=== PATIENT | female | born 1965 | race Caucasian/White ===

== ENCOUNTER 2017-08-03 13:32 | Outpatient (CLI) | payer OTHER ==
--- NOTE | 2017-08-03 15:43 | ULT ---
ULTRASOUND WITH DOPPLER DUPLEX VENOUS LOWER EXTREMITY RIGHT CPT: 51078 ICD-10-PCS: B54D HISTORY: Erythema, edema. TECHNIQUE: Color flow Doppler, spectral waveform analysis of pulsed Doppler, and kong-scale imaging with compre ssion and augmentation, were used to evaluate the bilateral common femoral, femoral, popliteal, post erior tibial, and superficial femoral, veins; and the proximal portions of the profunda femoral and greater saphenous, veins. FINDINGS: There is appropriate compressibility and flow within the image deep vein system right lower extremit y. IMPRESSION: 1. No deep vein thrombosis. 2. Soft tissue edema. POS: [facility]
== END 2017-08-03 13:33 | disposition home or self-care (01) ==
LOC: ULT 13:32
PROVIDERS: ATTEND Family Medicine
DX: M79.604 Pain in right leg (principal); R60.0 Localized edema

== ENCOUNTER 2020-09-25 14:24 | Inpatient (IN) | payer SELFPAY ==
[~2020-09-25 14:24] MED LIST: Iopamidol-370 76% 500 ML 1 ML ONE
[2020-09-25 15:12] LABS: Bilirubin Negative (Negative); Blood, Urine 2+ (Negative); Clarity Extra Turbid (Clear); Glucose, Urine (Dipstick) Normal (Negative); Ketone, Urine 10 mg/dL (Negative); Leukocyte 500 Leu/uL (Negative); Nitrite Negative (Negative); Protein, Urine (Dipstick) 100 mg/dL (Neg-Trace); Specific Gravity, Urine 1.029 (1.002-1.036); Urobilinogen 3 mg/dL (Less than 2); WBC/HPF Greater than 50 HPF (0-3); pH, Urine 5.5 (5.0-9.0)
[2020-09-25 15:20] LABS: Hemoglobin 12.8 g/dL (12.0-16.0); Mean Corpuscular HGB CONC 34.6 g/dL (32.0-36.0); Mean Corpuscular Hemoglobin 32.8 pg (27.0-31.0); Mean Corpuscular Volume 94.7 fL (78.0-98.0); Mean Platelet Volume 7.4 fL (7.4-10.4); Platelet Count 298 thou/uL (130-400); RBC Distribution Width 11.5 % (11.5-14.5); Red Blood Cell (RBC) Count 3.91 mill/uL (4.20-5.40); White Blood Cell (WBC) Count 13.2 thou/uL (4.8-10.8)
[2020-09-25 15:25] LABS: Bacteria/HPF 4+ HPF (None Seen)
[2020-09-25 15:40] LABS: ALT (SGPT) 15 U/L (8-55); AST (SGOT) 17 U/L (5-34); Albumin 3.5 g/dL (3.5-5.0); Alkaline Phosphatase 93 U/L (40-110); Anion Gap 15 mmol/L (10-20); BUN (Urea Nitrogen) 6 mg/dL (9.8-20.1); Bilirubin, Total 0.6 mg/dL (0.2-1.2); Calc. Creatinine Clearance 0 mL/min (70-130); Calcium 8.7 mg/dL (7.8-10.44); Carbon Dioxide 31 mmol/L (22-29); Chloride 94 mmol/L (98-107); Estimated GFR-MDRD 79; Glucose 127 mg/dL (70-105); Lipase 7 U/L (8-78); Potassium 3.1 mmol/L (3.5-5.1); Protein, Total 7.5 g/dL (6.0-8.3); Sodium 137 mmol/L (136-145)
[2020-09-25 15:49] LABS: Band 23 % (5-11); Eosinophils 1 % (0-10); Lymphocytes 5 % (21-51); MDiff Complete? YES; Monocytes 8 % (0-10); Neutrophil 58 % (42-75); Platelet Morphology Comment Appears Adequate; Polychromasia SLIGHT = 2-3 cells (100X) (0-2/hpf); Reactive Lymphocytes 5 % (0-10)
[2020-09-25 16:44] LABS: CKMB 0.3 ng/mL (0-6.6)
[2020-09-25] MEDS ORDERED: Piperacillin/Tazobactam 4.5 GM VIAL ONE (16:54)
--- NOTE | 2020-09-25 17:12 | CT ---
CT ABDOMEN AND PELVIS WITH IV CONTRAST: 09/25/20 HISTORY: Left sided abdominal pain. Patient treated with antibiotics for diverticulitis three years ago. FINDINGS: There is inadequate enhancement of the solid organs due to IV infiltration during injection. The lung bases are clear. Liver redemonstrated decreased echogenicity compared to the spleen consiste nt with fatty infiltrate. The spleen, pancreas, adrenal glands and kidneys are normal. No calcified gallstones are seen. No free air, free fluid or lymphadenopathy is noted in the abdomen or pelvis. There is colonic diverticulosis. There is a pericolonic inflammatory change in the left lower quadran t with an ill-defined air fluid containing mass measuring 5.5 x 6.5 x 5.5 cm. The small bowel loops a re not abnormally dilated. The uterus is present. The aorta is of normal caliber. There are degenerative changes in the spine. IMPRESSION: 1. Colonic diverticulosis with sigmoid diverticulitis and abscess formation. 2. Fatty liver. Discussed over the telephone with Marlene Bird RN in the Emergency Room at 4:36 p.m. POS: OFF
[2020-09-25 17:30] LABS: INR-International Normal Ratio 1.1; PTT 30.7 sec (22.9-36.1); Prothrombin Time 14.8 sec (12.0-14.7)
[2020-09-25] MEDS ORDERED: Sodium Chloride 0.9% 1,000 ML IV SCH (19:00)
[2020-09-25] MEDS ORDERED: Acetaminophen 325 MG TAB PO PRN ×2 (19:00→21:20)
[2020-09-25] MEDS ORDERED: Ondansetron PF 4 MG/2 ML Vial IVP PRN (21:20)
[2020-09-25] MEDS ORDERED: Acetaminophen 650 MG Suppository PR PRN (21:20)
[2020-09-25] MEDS ORDERED: HYDROcodone/Acetaminophen 5/325 mg Tablet PO PRN (21:20)
[2020-09-25] MEDS ORDERED: Ondansetron ODT 4 MG TAB PO PRN (21:20)
[2020-09-25 21:25] VITALS: BMI 54.8
--- NOTE | 2020-09-25 21:30 | PDOC.HHP ---
Hospitalist HPI - History of Present Illness abdominal pain History of Present Illness: Case of an 55y/o female with pmhx of morbid obesity who comes to hospital due to abdominal pain. patient refers she was on her usual state of health until 2 weeks ago when she started with generalize abdominal pain which she described as 8/10 non radiating and intermittent, associated with nausea but no vomiting. Patient was seen in urgent care 3 days ago and was started on ciprofloxacin and Flagyl empirically to treat for diverticulitis. She did not have any imaging performed at that time. patient refers she has continued to have the abdominal pain but now is more concentrated in her LLQ and notice increasing levels of general malaise and anorexia for which she decided to come to hospital for evaluation. here she had an abd ct which should diverticulitis with associated abscess. patient denies fever vomiting diarrhea does refers some nausea and chills. Hospitalist ROS - Review of Systems All other systems reviewed; all pertinent +/- noted in HPI/Subj Hospitalist History - Past Surgical History Past Surgical History: reports: - Family History Family History: reports: no pertinent history - Social History Smoking Status: Never smoker Alcohol: reports: Rare Drugs: reports: none Living Situation: With Family - Exam General Appearance: NAD, awake alert Eye: PERRL, anicteric sclera ENT: normocephalic atraumatic, no oropharyngeal lesions, moist mucosa Neck: supple, symmetric, no JVD Heart: RRR, no murmur, no gallops Respiratory: CTAB, no wheezes, no rales, no ronchi Gastrointestinal: soft, non-distended, normal bowel sounds, tender to palpation Extremities: no cyanosis, no clubbing, no edema Skin: normal turgor, no lesions, no rashes Neurological: cranial nerve grossly intact, normal sensation to touch Musculoskeletal: normal tone, normal strength, no muscle wasting Psychiatric: normal affect, normal behavior, A&O x 3 Hospitalist Results - Labs Result Diagrams: 09/25/20 15:05 09/25/20 15:05 Lab results: WBC 13.2 thou/uL (4.8-10.8) H 09/25/20 15:05 Hgb 12.8 g/dL (12.0-16.0) 09/25/20 15:05 Hct 37.1 % (36.0-47.0) 09/25/20 15:05 MCV 94.7 fL (78.0-98.0) 09/25/20 15:05 Plt Count 298 thou/uL (130-400) 09/25/20 15:05 Band Neuts % (Manual) 23 % (5-11) H 09/25/20 15:05 Sodium 137 mmol/L (136-145) 09/25/20 15:05 Potassium 3.1 mmol/L (3.5-5.1) L 09/25/20 15:05 Chloride 94 mmol/L (98-107) L 09/25/20 15:05 Carbon Dioxide 31 mmol/L (22-29) H 09/25/20 15:05 BUN 6 mg/dL (9.8-20.1) L 09/25/20 15:05 Creatinine 0.76 mg/dL (0.6-1.1) 09/25/20 15:05 Glucose 127 mg/dL (70-105) H 09/25/20 15:05 Calcium 8.7 mg/dL (7.8-10.44) 09/25/20 15:05 Total Bilirubin 0.6 mg/dL (0.2-1.2) 09/25/20 15:05 AST 17 U/L (5-34) 09/25/20 15:05 ALT 15 U/L (8-55) 09/25/20 15:05 Alkaline Phosphatase 93 U/L (40-110) 09/25/20 15:05 CK-MB (CK-2) 0.3 ng/mL (0-6.6) 09/25/20 15:02 Troponin I 0.033 ng/mL (< 0.028) H 09/25/20 15:02 C-Reactive Protein 9.15 mg/dL (= or < 0.5) H 09/25/20 15:05 Serum Total Protein 7.5 g/dL (6.0-8.3) 09/25/20 15:05 Albumin 3.5 g/dL (3.5-5.0) 09/25/20 15:05 Lipase 7 U/L (8-78) L 09/25/20 15:05 Urine Ketones 10 mg/dL (Negative) A 09/25/20 14:54 Urine Blood 2+ (Negative) A 09/25/20 14:54 Urine Nitrite Negative (Negative) 09/25/20 14:54 Ur Leukocyte Esterase 500 Tarah/uL (Negative) A 09/25/20 14:54 Urine RBC 11-20 HPF (0-3) A 09/25/20 14:54 Urine WBC Greater than 50 HPF (0-3) A 09/25/20 14:54 Ur Squamous Epith Cells 11-20 HPF (0-3) A 09/25/20 14:54 Urine Bacteria 4+ HPF (None Seen) A 09/25/20 14:54 Hospitalist H&P A/P - Problem (1) Diverticulitis of large intestine with abscess Code(s): K57.20 - DVTRCLI OF LG INT W PERFORATION AND ABSCESS W/O BLEEDING Status: Acute (2) UTI (urinary tract infection) Status: Acute (3) Hypokalemia Code(s): E87.6 - HYPOKALEMIA Status: Acute (4) Elevated troponin Code(s): R77.8 - OTHER SPECIFIED ABNORMALITIES OF PLASMA PROTEINS Status: Acute - Plan Plan: Case of an 55y/o female with the stated pmhx who presents with uti and diverticulitis with abscess diverticulitis with abscess - on zosyn - pain management - ivfs - surgery consulted - I radiologist consulted - f/u blood cultures - abd ct consistent with diverticulitis with abscess uti - should be covered with zosyn - f/u urine cultures hypokalemia - replace elecktrolites - check mg elevated troponin - likely troponin leak, will trend
--- NOTE | 2020-09-25 21:43 | HP ---
CONSULTING PHYSICIAN: Dr. Boyd, emergency physician. CHIEF COMPLAINT: Intraabdominal abscess. HISTORY OF PRESENT ILLNESS: The patient is a massively obese (BMI of 56.5) 55-year-old white female. She gives a 2-week history of "not feeling well" with some degree of progressive abdominal discomfort. She was unable to localize her discomfort and then felt as though it was perhaps throughout her abdomen. She denied ever vomiting. She has poor appetite. She notes that she has not had a bowel movement in about three days. She presented to an urgent care facility two days ago, where she was given a presumptive diagnosis of diverticulitis. Imaging was not performed. She was given oral antibiotics as well as a nausea medication and discharged. When her symptoms did not improve and in fact worsened, she presented to the emergency room this evening. She underwent evaluation including laboratory and radiologic studies. Her laboratory studies revealed leukocytosis with white blood cell count of 13.2, hemoglobin is 12.8, she has 23% bandemia. Her coagulation panel was essentially normal. Electrolytes revealed hypokalemia with potassium of 3.1 and hypochloremia with a chloride of 94. Her BUN and creatinine are normal. Her albumin is normal at 3.5. Her TSH was not checked (she has a history of hypothyroidism). CT scan of her abdomen revealed an intraabdominal abscess associated with the left colon in the left lower quadrant measuring 5.5 x 6.5 cm. There is evidence of colonic diverticulosis. There was no evidence of other significant intraabdominal abnormality. I am consulted regarding her intraabdominal abscess. The radiologists felt initially that her massive obesity made her not amenable to a percutaneous drainage; however, it was found that by turning her laterally that there was potentially room to access her abdomen within the CT scanner. PAST MEDICAL HISTORY: Apparent history of hypothyroidism. She has taken herself off thyroid medication. She is not certain how long it has been or why she did stop taking it. She also has sleep apnea, for which she uses CPAP. PAST SURGICAL HISTORY: about 15 years ago. CHRONIC MEDICATIONS: None. CURRENT MEDICATIONS: Oral antibiotics as prescribed two days ago. ALLERGIES: NO KNOWN DRUG ALLERGIES. PERSONAL AND SOCIAL HISTORY: She is and her is present at bedside. They have five children. She lives in [place]. Her primary care physician is Dr. Warren Villagomez. Her engine room helper is Dr. Yesenia Lewis/Sagrario Camarena, nurse practitioner. She does not smoke. She drinks alcohol rarely. REVIEW OF SYSTEMS: Otherwise unremarkable. She notes that she has never had a colonoscopy, even though she notes that it has been recommended previously. She does get mammograms. She denies any significant history of constipation or diarrhea. She notes occasional blood in her stool, but presumed this was from hemorrhoids. PHYSICAL EXAMINATION: VITAL SIGNS: She is about 5 feet 5 inches tall and weighs about 340 pounds, which gives a BMI of 56.5. Her temperature is 98.6, pulse 87, and blood pressure 143/82. GENERAL: She is a very pleasant white female, who is alert and oriented x3. She is conversant and cooperative. Her is present at bedside. She is in no acute distress. HEAD, EYES, EARS, NOSE, AND THROAT: Unremarkable. NECK: Supple. LUNGS: Clear to auscultation throughout. CARDIAC: Regular rate and rhythm without murmur. ABDOMEN: Massively obese. She has tenderness to deeper palpation on the left side in both the upper and lower quadrants. Right side of her abdomen is essentially nontender to deep palpation. Bowel sounds are present and surprisingly normoactive. EXTREMITIES: Unremarkable, although she states that they are tender from her varicose veins. LABORATORY DATA: Labs are as mentioned above. ASSESSMENT: The patient with an abscess in the inner left abdomen that appears to be related to perforated diverticulitis. For now, I recommend an attempted nonoperative management with percutaneous CT-guided drainage. Radiology has already discerned that she appears to be amenable to this procedure in spite of her size. I explained to her the options of radiologic drainage versus surgical drainage and the potential associated procedures that could be necessary including colon resection with or without a colostomy creation. She also understands that if this is appropriately drained and this episode is treated nonoperatively, that she would still likely require/benefit from elective colon resection. Finally, I spoke with her regarding her massive obesity and told her that she would be a very good candidate for weight-loss surgery at some point in the future after her acute problems are addressed. As I will be out of town for the next several days, Dr. Jiménez will cover this patient in my absence. I would anticipate she will be discharged home with the drain in place in few days and I would be happy to see her back in the office for drain removal and coordination of further colon surgery and potentially bariatric surgery as well. Job ID: [id number]
[2020-09-25 23:05] LABS: Troponin I Less than 0.010 ng/mL (< 0.028)
[2020-09-25] MEDS: HYDROcodone/Acetaminophen 5/325 mg Tablet PO PRN (23:39)
[2020-09-25] MEDS: Piperacillin/Tazobactam 4.5 GM in Sodium Chloride 0.9% 100 ML IVPB SCH (23:40)
[2020-09-25] MEDS ORDERED: Piperacillin/Tazobactam 3.375 GM in Sodium Chloride 0.9% 100 ML IVPB SCH (23:59)
[2020-09-26 02:01] LABS: Hemoglobin 12.5 g/dL (12.0-16.0); Mean Corpuscular HGB CONC 35.2 g/dL (32.0-36.0); Mean Corpuscular Hemoglobin 33.5 pg (27.0-31.0); Mean Corpuscular Volume 95.2 fL (78.0-98.0); Mean Platelet Volume 7.3 fL (7.4-10.4); Platelet Count 286 thou/uL (130-400); RBC Distribution Width 11.5 % (11.5-14.5); Red Blood Cell (RBC) Count 3.72 mill/uL (4.20-5.40); White Blood Cell (WBC) Count 14.2 thou/uL (4.8-10.8)
[2020-09-26 02:11] LABS: Anion Gap 17 mmol/L (10-20); BUN (Urea Nitrogen) 6 mg/dL (9.8-20.1); Calc. Creatinine Clearance 230 mL/min (70-130); Calcium 8.3 mg/dL (7.8-10.44); Carbon Dioxide 25 mmol/L (22-29); Chloride 98 mmol/L (98-107); Estimated GFR-MDRD 90; Glucose 137 mg/dL (70-105); Magnesium 1.7 mg/dL (1.6-2.6); Potassium 3.1 mmol/L (3.5-5.1); Sodium 137 mmol/L (136-145)
[2020-09-26 02:43] LABS: Band 17 % (5-11); Lymphocytes 20 % (21-51); MDiff Complete? YES; Monocytes 5 % (0-10); Neutrophil 58 % (42-75)
[2020-09-26] MEDS: D5 0.9% NS w/ 20 mEq KCl 1,000 ML IV SCH ×3 (06:37→13:29)
[2020-09-26] MEDS: Piperacillin/Tazobactam 4.5 GM in Sodium Chloride 0.9% 100 ML IVPB SCH ×4 (06:37→23:25)
[2020-09-26] MEDS ORDERED: FLU VACC QS2020-21(6MOS UP)/PF 60 MCG/0.5 ML SYRINGE IM ONE (09:00)
[2020-09-26] MEDS ORDERED: Midazolam HCl 2 mg/2 ml Vial ONE (09:13)
[2020-09-26] MEDS ORDERED: Fentanyl 100 MCG/2 ML VIAL ONE (09:13)
--- NOTE | 2020-09-26 10:36 | CT ---
PROCEDURE NOTE: PREPROCEDURE DIAGNOSIS: Left abdominal diverticular abscess PROCEDURE: CT-guided drain placement [employer] MANAGER: Nessa ANESTHESIA: 10 mL of buffered 1% lidocaine; 100 mcg fentanyl IV. SPECIMEN: 75 mL--Purulent material TECHNIQUE: Prior to the procedure, the risks and benefits of a CT guided percutaneous drain placement were explained to the patient which consented fully to the procedure. The patient's prior CT was reviewed and the fluid collection was again identified. The patient was sc anned with a fiducial marker in place in the right lateral decubitus position. A allison was then placed on the skin at the area of best entry into the fluid collection. The skin was prepped and draped in usual sterile fashion. Lidocaine was used to anesthetize the skin and soft tissues down towards the fluid collection. A scan was performed with the lidocaine needle showing appropriate direction of the needle. The lidocaine needle was removed and a Yueh needle and c atheter were placed using CT guidance into the fluid collection. The Yueh needle was removed. An Amplatz wire was then placed through the Yueh catheter and coiled wit hin the collection which was confirmed with CT guidance. The Yueh catheter was then removed. An 8 Persian pigtail catheter was then placed over the Amplatz wire. A total of 75 mL of purulent fluid was removed. The catheter was then flushed with 10 mL of sterile saline. This was coiled within the fluid collection which was confirmed with CT guidance. The patient tolerated the procedure well without immediate post procedure complication. The drainage catheter was secured to the patient.
[2020-09-26] MEDS: Enoxaparin Sodium 40 MG/0.4 ML SYRINGE SC SCH (11:18)
--- NOTE | 2020-09-26 12:19 | PDOC.HOSPP ---
- Subjective Encounter Date: 09/26/20 Encounter Time: 12:10 Subjective: f/u for LLQ abd pain with diverticular abscess s/p CT-guided drainage today. Receiving Zosyn currently and overall feels ok. - Objective Vital Signs & Weight: Vital Signs (12 hours) Temp Pulse Resp BP Pulse Ox 09/26/20 11:05 98.4 F 73 16 131/73 93 L 09/26/20 07:47 99.2 F 82 18 151/78 H 95 09/26/20 04:00 97.8 F 85 16 142/86 H 98 Weight Weight 339 lb 8.19 oz Result Diagrams: 09/26/20 01:37 09/26/20 01:37 Additional Labs: Microbiology 09/25/20 17:49 Venous blood - Right Arm Blood Culture - Preliminary Specimen has been received and culture in progress. No Growth to date. 09/25/20 17:28 Venous blood - Right Arm Blood Culture - Preliminary Specimen has been received and culture in progress. No Growth to date. Laboratory Tests 09/25/20 09/25/20 09/25/20 15:05 15:05 15:05 WBC 13.2 H Hgb 12.8 Band Neuts % (Manual) 23 H Potassium 3.1 L C-Reactive Protein 9.15 H TSH 3rd Generation 09/26/20 09/26/20 01:37 01:37 WBC Hgb Band Neuts % (Manual) 17 H Potassium C-Reactive Protein TSH 3rd Generation 3.3627 Hospitalist ROS - Medication Medications: Active Medications Generic Name Dose Route Start Last Admin Trade Name Freq PRN Reason Stop Dose Admin Hydrocodone Bitart/Acetaminophen 1 tab 09/25/20 21:20 09/25/20 23:39 Hydrocodone/Acetaminophen 5/325 Mg Tablet PO 1 tab Q4H PRN Administration Moderate Pain (4-6) Enoxaparin Sodium 40 mg 09/26/20 09:00 09/26/20 11:18 Enoxaparin Sodium 40 Mg/0.4 Ml Syringe SC 40 mg 0900 ROSEMARIE Administration Piperacillin Sod/Tazobactam 100 mls @ 200 mls/hr 09/25/20 23:59 09/26/20 11:17 Sod 4.5 gm/ Sodium Chloride IVPB 100 mls Q6HR ROSEMARIE Administration Potassium Chloride/Dextrose/Sod Cl 1,000 mls @ 125 mls/hr 09/25/20 20:30 09/26/20 06:37 D5 0.9% Ns W/ 20 Meq Kcl IV 1,000 mls .Q8H ROSEMARIE Administration Ondansetron HCl 4 mg 09/25/20 21:20 09/26/20 04:29 Ondansetron Pf 4 Mg/2 Ml Vial IVP 4 mg Q6H PRN Administration Nausea/Vomiting - Exam General Appearance: NAD, awake alert Eye: PERRL, anicteric sclera ENT: normocephalic atraumatic, no oropharyngeal lesions Neck: supple, symmetric, no JVD, no thyromegaly, no lymphadenopathy Heart: RRR, no murmur, no gallops, no rubs, normal peripheral pulses Heart - other findings: S1, S2 Respiratory: CTAB, no wheezes, no rales, no ronchi, normal chest expansion Gastrointestinal: soft, non-distended, normal bowel sounds, no palpable masses, no guarding Gastrointestinal - other findings: obese, TTP in LLQ Extremities: no cyanosis, no clubbing, no edema Skin: normal turgor, no lesions Neurological: cranial nerve grossly intact, no new deficit Musculoskeletal: normal tone, normal strength, no muscle wasting Psychiatric: normal affect, A&O x 3 Hosp A/P (1) Diverticulitis of large intestine with abscess Code(s): K57.20 - DVTRCLI OF LG INT W PERFORATION AND ABSCESS W/O BLEEDING Status: Acute Plan: s/p CT-guided drainage, await final cx results, continue Zosyn IV (2) Hypokalemia Code(s): E87.6 - HYPOKALEMIA Status: Acute Plan: KCL 40meq x 1 now then BID, repeat K+ in am (3) UTI (urinary tract infection) Status: Suspected Plan: Await final Ucx results, continue Zosyn (4) Abdominal pain Code(s): R10.9 - UNSPECIFIED ABDOMINAL PAIN Status: Acute Qualifiers: Abdominal location: left lower quadrant Qualified Code(s): R10.32 - Left lower quadrant pain Plan: Secondary to #1, improved s/p drainage of LLQ diverticular abscess - Plan continue antibiotics, social service agency director, incentive spirometry, out of bed/ambulate, DVT proph w/SCDs Stable currently continue Zosyn Pain control as clinically indicated Continue IVF's KCL 40meq PO BID AM lab: BMP, CBC
[2020-09-26] MEDS ORDERED: Potassium Chloride 20 MEQ TAB PO SCH (12:30)
[2020-09-26] MEDS: HYDROcodone/Acetaminophen 5/325 mg Tablet PO PRN (13:27)
--- NOTE | 2020-09-26 14:15 | PDOC.GSPN ---
Surgery Progress Note: Subj - Subjective Narrative: Patient is feeling okay. She is still having some pain in the left lower quadrant. She underwent successful percutaneous drainage of her presumed diverticular abscess and has purulent drainage in the drain. Abdomen is soft nondistended and she is passing flatus and is hungry. Vital signs are okay. Labs are okay except leukocytosis. Assessment/plan: Likely diverticular abscess, status post percutaneous drainage doing well. Passing flatus and hungry. Clear liquid diet ordered with advancement to full liquids if tolerated. Nurses to train patient and family to care for her percutaneous drain. If she continues to clinically improve and tolerates a diet she can be transitioned to oral antibiotics and sent home with the drain with outpatient follow-up with Dr. Bartlett next week. Surgery Progress Note: Obj - Vital signs Vital signs: Vital Signs - Most Recent Temp Pulse Resp BP Pulse Ox 98.4 F 73 16 131/73 93 L 09/26/20 11:05 09/26/20 11:05 09/26/20 11:05 09/26/20 11:05 09/26/20 11:05 Surgery Progress Note: Results - Labs Result Diagrams: 09/26/20 01:37 09/26/20 01:37 Lab results: Laboratory Results - last 12 hr 09/26/20 09/26/20 01:37 01:37 Neutrophils % (Manual) 58 Band Neuts % (Manual) 17 H Lymphocytes % (Manual) 20 L Monocytes % (Manual) 5 Lymphocytes # Not Reportable TSH 3rd Generation 3.9557
[2020-09-26] MEDS: Potassium Chloride 20 MEQ TAB PO SCH (17:25)
[2020-09-27] MEDS: D5 0.9% NS w/ 20 mEq KCl 1,000 ML IV SCH ×3 (05:00→18:37)
[2020-09-27] MEDS: Piperacillin/Tazobactam 4.5 GM in Sodium Chloride 0.9% 100 ML IVPB SCH ×3 (05:00→17:07)
[2020-09-27 05:34] LABS: #Eosinphils 0.2 thou/uL (0.0-0.7); #Lymphocytes 2.3 thou/uL (1.20-3.40); #Monocytes 0.7 thou/uL (0.11-0.59); #Neutrophils 7.9 thou/uL (1.40-6.50); %Basophils 0.1 % (0.0-1.0); %Eosinophils 1.4 % (0.0-10.0); %Lymphocytes 21.1 % (21.0-51.0); %Monocytes 5.9 % (0.0-10.0); %Neutrophils 71.6 % (42.0-75.0); Hemoglobin 11.5 g/dL (12.0-16.0); Mean Corpuscular HGB CONC 33.3 g/dL (32.0-36.0); Mean Corpuscular Hemoglobin 31.9 pg (27.0-31.0); Mean Corpuscular Volume 95.9 fL (78.0-98.0); Mean Platelet Volume 7.5 fL (7.4-10.4); Platelet Count 304 thou/uL (130-400); RBC Distribution Width 11.5 % (11.5-14.5); Red Blood Cell (RBC) Count 3.59 mill/uL (4.20-5.40); White Blood Cell (WBC) Count 11.1 thou/uL (4.8-10.8)
[2020-09-27 05:57] LABS: Anion Gap 10 mmol/L (10-20); BUN (Urea Nitrogen) 5 mg/dL (9.8-20.1); Calc. Creatinine Clearance 217 mL/min (70-130); Calcium 7.9 mg/dL (7.8-10.44); Carbon Dioxide 30 mmol/L (22-29); Chloride 102 mmol/L (98-107); Estimated GFR-MDRD 84; Glucose 149 mg/dL (70-105); Potassium 3.5 mmol/L (3.5-5.1); Sodium 138 mmol/L (136-145)
[2020-09-27] MEDS: Potassium Chloride 20 MEQ TAB PO SCH ×2 (10:01→17:06)
[2020-09-27] MEDS: Enoxaparin Sodium 40 MG/0.4 ML SYRINGE SC SCH (10:02)
--- NOTE | 2020-09-27 11:17 | PDOC.HOSPP ---
- Subjective Encounter Date: 09/27/20 Encounter Time: 11:15 Subjective: f/u for LLQ diverticular abscess s/p CT-guided percutaneous drainage POD # 1 receiving Zosyn currently. Tolerating current full liquid diet without increased abd pain or N/V. - Objective Vital Signs & Weight: Vital Signs (12 hours) Temp Pulse Resp BP Pulse Ox 09/27/20 07:20 98.1 F 68 18 128/71 90 L 09/27/20 03:00 98.5 F 64 16 115/75 95 Weight Weight 339 lb 8.19 oz I&O: 09/26/20 09/27/20 09/28/20 06:59 06:59 06:59 Intake Total 1250 Balance 1250 Result Diagrams: 09/27/20 05:25 09/27/20 05:25 Additional Labs: Microbiology 09/25/20 17:49 Venous blood - Right Arm Blood Culture - Preliminary Specimen has been received and culture in progress. No Growth to date. 09/25/20 17:28 Venous blood - Right Arm Blood Culture - Preliminary Specimen has been received and culture in progress. No Growth to date. Laboratory Tests 09/25/20 09/25/20 09/25/20 15:05 15:05 15:05 WBC 13.2 H Hgb 12.8 Band Neuts % (Manual) 23 H Potassium 3.1 L C-Reactive Protein 9.15 H TSH 3rd Generation 09/26/20 09/26/20 01:37 01:37 WBC Hgb Band Neuts % (Manual) 17 H Potassium C-Reactive Protein TSH 3rd Generation 3.3627 Microbiology 09/26/20 09:50 Abdomen - Abscess Bacterial Culture - Preliminary Presumptive Escherichia coli Streptococcus anginosus Group Hospitalist ROS - Medication Medications: Active Medications Generic Name Dose Route Start Last Admin Trade Name Freq PRN Reason Stop Dose Admin Hydrocodone Bitart/Acetaminophen 1 tab 09/25/20 21:20 09/26/20 13:27 Hydrocodone/Acetaminophen 5/325 Mg Tablet PO 1 tab Q4H PRN Administration Moderate Pain (4-6) Hydrocodone Bitart/Acetaminophen 2 tab 09/25/20 21:20 09/26/20 20:35 Hydrocodone/Acetaminophen 5/325 Mg Tablet PO 2 tab Q4H PRN Administration Severe Pain (7-10) Enoxaparin Sodium 40 mg 09/26/20 09:00 09/27/20 10:02 Enoxaparin Sodium 40 Mg/0.4 Ml Syringe SC 40 mg 0900 ROSEMARIE Administration Piperacillin Sod/Tazobactam 100 mls @ 200 mls/hr 09/25/20 23:59 09/27/20 05:00 Sod 4.5 gm/ Sodium Chloride IVPB 100 mls Q6HR ROSEMARIE Administration Potassium Chloride/Dextrose/Sod Cl 1,000 mls @ 125 mls/hr 09/25/20 20:30 09/27/20 05:47 D5 0.9% Ns W/ 20 Meq Kcl IV Not Given .Q8H ROSEMARIE Ondansetron HCl 4 mg 09/25/20 21:20 09/26/20 04:29 Ondansetron Pf 4 Mg/2 Ml Vial IVP 4 mg Q6H PRN Administration Nausea/Vomiting Potassium Chloride 40 meq 09/26/20 17:00 09/27/20 10:01 Potassium Chloride 20 Meq Tab PO 40 meq BID-WM ROSEMARIE Administration - Exam General Appearance: NAD, awake alert Eye: PERRL, anicteric sclera ENT: normocephalic atraumatic, no oropharyngeal lesions Neck: supple, symmetric, no JVD, no thyromegaly, no lymphadenopathy Heart: RRR, no murmur, no gallops, no rubs, normal peripheral pulses Heart - other findings: S1, S2 Respiratory: CTAB, no wheezes, no rales, no ronchi, normal chest expansion, no tachypnea Gastrointestinal: soft, normal bowel sounds, no palpable masses, tender to palpation Gastrointestinal - other findings: obese, TTP in LLQ, percutaneous drain in place with purulent drainage noted Extremities: no cyanosis, no clubbing, no edema Skin: normal turgor, no lesions Neurological: cranial nerve grossly intact, no new deficit Musculoskeletal: normal tone, normal strength, no muscle wasting Psychiatric: normal affect, A&O x 3 Hosp A/P (1) Diverticulitis of large intestine with abscess Code(s): K57.20 - DVTRCLI OF LG INT W PERFORATION AND ABSCESS W/O BLEEDING Status: Acute Plan: s/p CT-guided percutaneous drainage POD #1 receiving Zosyn currently, continue drainage with catheter, likely home antibiotics with E. coli./Strep spp isolated preliminarily on abscess cx (2) Hypokalemia Code(s): E87.6 - HYPOKALEMIA Status: Acute Plan: Resolving, supportive (3) UTI (urinary tract infection) Status: Suspected Plan: Ucx negative to date (4) Abdominal pain Code(s): R10.9 - UNSPECIFIED ABDOMINAL PAIN Status: Acute Qualifiers: Abdominal location: left lower quadrant Qualified Code(s): R10.32 - Left lower quadrant pain Plan: Improved, supportive mgmt, po pain control, OOB/ambulate - Plan continue antibiotics, older adult social work specialist, out of bed/ambulate, DVT proph w/SCDs Stable currently continue Zosyn another 24h pending final sensitivities Pain control as clinically indicated OOB/ambulate Advance diet as tolerated Continue IVF's KCL 40meq PO BID AM lab: CBC Likely home in 24h
--- NOTE | 2020-09-27 17:51 | PDOC.GSPN ---
Surgery Progress Note: Subj - Subjective Narrative: Patient is feeling good. She is not having any pain in her abdomen except with certain movements. She is tolerating full liquid diet without nausea and has had bowel movements and passed flatus. Abdomen is soft nontender nondistended. Vitals are okay. Presumed E. coli and strep from culture. Assessment/plan: Diverticular abscess status post drainage. Clinically much improved after drainage and antibiotics. Awaiting sensitivities to plan oral antibiotics. Likely home tomorrow. Advance diet to soft Surgery Progress Note: Obj - Vital signs Vital signs: Vital Signs - Most Recent Temp Pulse Resp BP Pulse Ox 98.2 F 68 16 136/84 98 09/27/20 15:30 09/27/20 15:30 09/27/20 15:30 09/27/20 15:30 09/27/20 15:30 Surgery Progress Note: Results - Labs Result Diagrams: 09/27/20 05:25 09/27/20 05:25 Lab results: Laboratory Results - last 12 hr 09/27/20 05:25 Sodium 138 Potassium 3.5 Chloride 102 Carbon Dioxide 30 H Anion Gap 10 BUN 5 L Creatinine 0.72 Estimated GFR (MDRD) 84 Glucose 149 H Calcium 7.9
[2020-09-28] MEDS: D5 0.9% NS w/ 20 mEq KCl 1,000 ML IV SCH ×2 (03:58→04:13)
[2020-09-28] MEDS ORDERED: Piperacillin/Tazobactam 4.5 GM in Sodium Chloride 0.9% 100 ML IVPB SCH (04:00)
[2020-09-28] MEDS: Piperacillin/Tazobactam 4.5 GM in Sodium Chloride 0.9% 100 ML IVPB SCH (04:12)
[2020-09-28 06:12] LABS: #Eosinphils 0.2 thou/uL (0.0-0.7); #Lymphocytes 2.1 thou/uL (1.20-3.40); #Monocytes 0.6 thou/uL (0.11-0.59); %Basophils 0.3 % (0.0-1.0); %Eosinophils 2.1 % (0.0-10.0); %Lymphocytes 23.5 % (21.0-51.0); %Monocytes 6.5 % (0.0-10.0); %Neutrophils 67.6 % (42.0-75.0); Hemoglobin 11.9 g/dL (12.0-16.0); Mean Corpuscular Hemoglobin 32.2 pg (27.0-31.0); Mean Corpuscular Volume 94.7 fL (78.0-98.0); Mean Platelet Volume 7.4 fL (7.4-10.4); Platelet Count 332 thou/uL (130-400); RBC Distribution Width 11.6 % (11.5-14.5); Red Blood Cell (RBC) Count 3.68 mill/uL (4.20-5.40); White Blood Cell (WBC) Count 8.9 thou/uL (4.8-10.8)
--- NOTE | 2020-09-28 08:05 | PDOC.HOSPP ---
- Subjective Encounter Date: 09/28/20 Encounter Time: 11:00 Subjective: Patient feeling well. No abdominal pain. No N/V. Tolerating diet. Normal bowel movements. - Objective Vital Signs & Weight: Vital Signs (12 hours) Temp Pulse Resp BP Pulse Ox 09/28/20 04:06 98.0 F 74 16 145/82 H 98 09/28/20 00:15 98.4 F 64 16 148/73 H 98 09/27/20 20:39 96 09/27/20 20:35 98.1 F 68 16 137/83 96 Weight Weight 339 lb 8.19 oz I&O: 09/27/20 09/28/20 09/29/20 06:59 06:59 06:59 Intake Total 1250 1620 Output Total 30 10 Balance 1250 -30 1610 Result Diagrams: 09/28/20 05:19 09/27/20 05:25 Hospitalist ROS - Review of Systems Constitutional: denies: fever, chills Respiratory: denies: cough, shortness of breath Cardiovascular: denies: chest pain, palpitations Gastrointestinal: denies: nausea, vomiting, abdominal pain, diarrhea, constipation - Medication Medications: Active Medications Generic Name Dose Route Start Last Admin Trade Name Freq PRN Reason Stop Dose Admin Hydrocodone Bitart/Acetaminophen 1 tab 09/25/20 21:20 09/26/20 13:27 Hydrocodone/Acetaminophen 5/325 Mg Tablet PO 1 tab Q4H PRN Administration Moderate Pain (4-6) Hydrocodone Bitart/Acetaminophen 2 tab 09/25/20 21:20 09/26/20 20:35 Hydrocodone/Acetaminophen 5/325 Mg Tablet PO 2 tab Q4H PRN Administration Severe Pain (7-10) Enoxaparin Sodium 40 mg 09/26/20 09:00 09/27/20 10:02 Enoxaparin Sodium 40 Mg/0.4 Ml Syringe SC 40 mg 0900 ROSEMARIE Administration Potassium Chloride/Dextrose/Sod Cl 1,000 mls @ 125 mls/hr 09/25/20 20:30 09/28/20 04:13 D5 0.9% Ns W/ 20 Meq Kcl IV Not Given .Q8H ROSEMARIE Ondansetron HCl 4 mg 09/25/20 21:20 09/26/20 04:29 Ondansetron Pf 4 Mg/2 Ml Vial IVP 4 mg Q6H PRN Administration Nausea/Vomiting Potassium Chloride 40 meq 09/26/20 17:00 09/27/20 17:06 Potassium Chloride 20 Meq Tab PO 40 meq BID-WM ROSEMARIE Administration - Exam General Appearance: NAD, awake alert ENT: moist mucosa Heart: RRR, no murmur, no gallops, no rubs Respiratory: CTAB, no wheezes, no rales, no ronchi Gastrointestinal: soft, non-tender, non-distended, normal bowel sounds Gastrointestinal - other findings: drain in place, nothing in it right now Psychiatric: normal affect, normal behavior, A&O x 3 Hosp A/P - Plan (1) Diverticulitis of large intestine with abscess Code(s): K57.20 - DVTRCLI OF LG INT W PERFORATION AND ABSCESS W/O BLEEDING Status: Acute Plan: s/p CT-guided percutaneous drainage POD #1 receiving Zosyn currently, continue drainage with catheter, home today on Augmentin to cover E. coli and the strep species. (2) Hypokalemia Code(s): E87.6 - HYPOKALEMIA Status: Acute Plan: Resolved, supportive (3) UTI (urinary tract infection) Status: Ruled out Plan: Ucx negative to date (4) Abdominal pain Code(s): R10.9 - UNSPECIFIED ABDOMINAL PAIN Status: Acute Qualifiers: Abdominal location: left lower quadrant Qualified Code(s): R10.32 - Left lower quadrant pain Plan: Improved, supportive mgmt, po pain control, OOB/ambulate - Plan continue antibiotics, social service technician, out of bed/ambulate, DVT proph w/SCDs Stable currently Pain control as clinically indicated OOB/ambulate Advance diet as tolerated Continue IVF's KCL 40meq PO BID WBC normalized Home today with drain and oral Augmentin, f/u with Dr. Bartlett next week.
[2020-09-28] MEDS ORDERED: Amoxicillin/Potassium Clav 875 MG TAB PO SCH (09:00)
[2020-09-28] MEDS: Potassium Chloride 20 MEQ TAB PO SCH (09:01)
[2020-09-28] MEDS: Enoxaparin Sodium 40 MG/0.4 ML SYRINGE SC SCH (09:02)
[2020-09-28 11:58] VITALS: BP 114/66; TEMP 98.2
--- NOTE | 2020-09-28 12:38 | PDOC.GSPN ---
Surgery Progress Note: Subj - Subjective Narrative: Patient is feeling good. She denies any abdominal pain. She is wearing her to take care of her drain. Culture results are back and her E. coli is pansensitive. Abdomen is soft nontender nondistended. There is minimal drainage this morning in her tube. Assessment/plan: Status post percutaneous drainage of diverticular abscess doing well. She is going be transitioned to oral antibiotics to complete a course of treatment and discharged home with follow-up in Dr. Bartlett's clinic for drain removal when the output is less than 20 mL a day for several days in a row. She can advance to a regular diet. Surgery Progress Note: Obj - Vital signs Vital signs: Vital Signs - Most Recent Temp Pulse Resp BP Pulse Ox 98.2 F 77 16 114/66 98 09/28/20 11:57 09/28/20 11:57 09/28/20 11:57 09/28/20 11:57 09/28/20 11:57 Surgery Progress Note: Results - Labs Result Diagrams: 09/28/20 05:19 09/27/20 05:25 Lab results: Laboratory Results - last 12 hr 09/28/20 05:19 WBC 8.9 RBC 3.68 L Hgb 11.9 L Hct 34.8 L MCV 94.7 MCH 32.2 H MCHC 34.0 RDW 11.6 Plt Count 332 MPV 7.4 Neutrophils % 67.6 Lymphocytes % 23.5 Monocytes % 6.5 Eosinophils % 2.1 Basophils % 0.3 Neutrophils # 6.0 Lymphocytes # 2.1 Monocytes # 0.6 H Eosinophils # 0.2 Basophils # 0.0
--- NOTE | 2020-09-30 07:30 | DIS ---
DATE OF ADMISSION: 09/25/2020 DATE OF DISCHARGE: 09/28/2020 PRIMARY CARE PHYSICIAN: Dr. Warren Villagomez. REASON FOR ADMISSION: Intraabdominal abscess. DIAGNOSES AT DISCHARGE: 1. Diverticulitis with intraabdominal abscess. 2. Hypokalemia, resolved. PROCEDURES: 1. CT scan of the abdomen and pelvis with contrast showing colonic diverticulosis with sigmoid diverticulitis and abscess formation and a fatty liver. 2. CT guided drain placement in left abdominal diverticular abscess. CONSULTATION: General Surgery, Dr. Bartlett. SUMMARY OF HOSPITAL COURSE: This is a 55-year-old female with history of obesity, obstructive sleep apnea on CPAP, and previous hypothyroidism but now euthyroid without any medication. She came in with 2-week history of not feeling well and then progressive abdominal discomfort. She was found to have a leukocytosis with bandemia, had abdominal pain to palpation. CT of the abdomen revealed intraabdominal abscess associated with the left colon in the left lower quadrant measuring 5.[address] Bartlett was consulted. A CT-guided drain was placed in the abscess with good drainage of fluid. The patient was put on Zosyn and cultures of the abscess were sent. The abscess did grow back E coli and Streptococcus anginosus, both presumably sensitive to penicillins. The patient was doing well with complete resolution of her abdominal pain, was tolerating a diet and so she is being discharged to home on Augmentin. DISCHARGE MANAGEMENT: Discharged to home. ACTIVITY: As tolerated. DIET: Fiber restricted diet. INSTRUCTIONS: For abscess drain management. FOLLOWUP: Follow up with Dr. Bartlett. She is to call the office next week for an appointment. DISCHARGE MEDICATIONS: 1. Augmentin 875 mg twice a day, 20 tablets dispensed. 2. Potassium chloride 20 mEq daily, 10 tablets dispensed. Job ID: [id number]
--- NOTE | 2020-09-30 14:05 | CT ---
PROCEDURE NOTE: PREPROCEDURE DIAGNOSIS: Left abdominal diverticular abscess PROCEDURE: CT-guided drain placement HARVEST WORKER FIELD CROP: Nessa ANESTHESIA: 10 mL of buffered 1% lidocaine; 100 mcg fentanyl IV. SPECIMEN: 75 mL--Purulent material TECHNIQUE: Prior to the procedure, the risks and benefits of a CT guided percutaneous drain placement were explained to the patient which consented fully to the procedure. The patient's prior CT was reviewed and the fluid collection was again identified. The patient was sc anned with a fiducial marker in place in the right lateral decubitus position. A allison was then placed on the skin at the area of best entry into the fluid collection. The skin was prepped and draped in usual sterile fashion. Lidocaine was used to anesthetize the skin and soft tissues down towards the fluid collection. A scan was performed with the lidocaine needle showing appropriate direction of the needle. The lidocaine needle was removed and a Yueh needle and c atheter were placed using CT guidance into the fluid collection. The Yueh needle was removed. An Amplatz wire was then placed through the Yueh catheter and coiled wit hin the collection which was confirmed with CT guidance. The Yueh catheter was then removed. An 8 Sudanese pigtail catheter was then placed over the Amplatz wire. A total of 75 mL of purulent fluid was removed. The catheter was then flushed with 10 mL of sterile saline. This was coiled within the fluid collection which was confirmed with CT guidance. The patient tolerated the procedure well without immediate post procedure complication. The drainage catheter was secured to the patient. Transcribed Date/Time: 09/30/2020 2:05 PM
== END 2020-09-28 15:48 | disposition home or self-care (01) | DRG 392 ==
LOC: ERS 14:24 → SJJU 17:58
PROVIDERS: ADMIT Internal Medicine; ATTEND Internal Medicine
PROC: 0W9G30Z Drainage of Peritoneal Cavity with Drainage Device, Percutaneous Approach (ICD-10-PCS; principal; 2020-09-26)
DX: K57.20 Diverticulitis of large intestine with perforation and abscess without bleeding (principal); Z68.43 Body mass index [BMI] 50.0-59.9, adult; N39.0 Urinary tract infection, site not specified; Z16.11 Resistance to penicillins; F41.9 Anxiety disorder, unspecified; E66.01 Morbid (severe) obesity due to excess calories; E87.6 Hypokalemia; R77.8 Other specified abnormalities of plasma proteins; Z79.01 Long term (current) use of anticoagulants; Z79.899 Other long term (current) drug therapy; E03.9 Hypothyroidism, unspecified; G47.33 Obstructive sleep apnea (adult) (pediatric); D72.829 Elevated white blood cell count, unspecified; B96.20 Unspecified Escherichia coli [E. coli] as the cause of diseases classified elsewhere; B95.5 Unspecified streptococcus as the cause of diseases classified elsewhere; K76.0 Fatty (change of) liver, not elsewhere classified
CPT/HCPCS: 36415; 49020; 74177; 77002; 80048; 80053; 81003; 81015; 82553; 83605; 83690; 83735; 84443; 84484; 85025; 85610; 85730; 86140; 87040; 87070; 87077; 87086; 87186; 87205; 93005; 96365; C1729; J1650; J2250; J2405; J2543; J3010; J3480; J3490; Q9967